=== PATIENT | female | born 1965 | race Caucasian/White ===

== ENCOUNTER 2021-08-30 03:03 | Emergency (ER) | payer SELFPAY ==
--- NOTE | ~2021-08-30 | CT_ITS ---
EXAMINATION: CT brain wo con DATE: 08/30/2021 04:07 INDICATION: Head injury. TECHNIQUE: Computed tomography (CT) of the head was performed without intravenous contrast. The mA wa s adjusted according to patient size. Iterative reconstruction technique was employed. The dose-lengt h product was 605.33 mGy-cm. COMPARISON: None FINDINGS: There is no intracranial hemorrhage, acute infarction, or abnormal intracranial mass lesion . The ventricles are normal in size. There is mild mucosal thickening in the paranasal sinuses. The o rbits are normal. The mastoid air cells are normal. There is left posterior scalp soft tissue swellin g. IMPRESSION: 1. Normal brain. Reviewed, dictated and finalized at location B. GE TECHNICIAN IMPRESSION: 1. Normal brain.
--- NOTE | ~2021-08-30 | CT_ITS ---
EXAMINATION: CT cervical spine wo con DATE: 08/30/2021 04:08 INDICATION: Head injury. TECHNIQUE: Computed tomography (CT) of the cervical spine was performed without intravenous contrast. Automated exposure control and iterative reconstruction technique were employed. The dose-length pro duct was 397.32 mGy-cm. COMPARISON: None FINDINGS: There is 2 mm anterolisthesis of C3 on C4 and 2 mm retrolisthesis of C4 on C5 and C5 on C6. There is 4 degrees dextrocurvature of cervical spine. Vertebral body heights are normal. There is mi ldly decreased disc height at C2-C3 and severely decreased disc height from C4-C5 through C6-C7 with endplate remodeling. The following disc levels are specifically discussed: C2-C3: There is mild bilateral uncovertebral joint osteoarthritis. There is moderate right and severe left facet joint osteoarthritis. There is mild left neural foraminal stenosis. There is no central c anal stenosis. C3-C4: There is mild right and moderate left uncovertebral joint osteoarthritis. There is severe bila teral facet joint osteoarthritis. There is mild bilateral neural foraminal stenosis. There is mild ce ntral canal stenosis. C4-C5: There is severe bilateral uncovertebral joint osteoarthritis. There is moderate bilateral face t joint osteoarthritis. There is moderate bilateral neural foraminal stenosis. There is mild central canal stenosis. C5-C6: There is severe bilateral uncovertebral joint osteoarthritis. There is moderate right and mild left facet joint osteoarthritis. There is moderate right and mild left neural foraminal stenosis. Th ere is mild central canal stenosis. C6-C7: There is severe bilateral uncovertebral joint osteoarthritis. There is mild bilateral facet shey int osteoarthritis. There is mild bilateral neural foraminal stenosis. There is mild central canal st enosis. C7-T1: There is no uncovertebral joint osteoarthritis. There is mild bilateral facet joint osteoarthr itis. There is no neural foraminal stenosis. There is no central canal stenosis. IMPRESSION: 1. No fracture. 2. Severe cervical spondylosis. Reviewed, dictated and finalized at location B. CUTTER
[2021-08-30 03:05] VITALS: BP 139/81; PULSE 60; RESP 18; TEMP 36.2; O2SAT 97
[2021-08-30 04:21] VITALS: BP 104/66; PULSE 59; RESP 16; O2SAT 100
--- NOTE | 2021-08-30 04:40 | PC.NURSE ---
PT CONTINUALLY GETTING OUT OF BED AND REMOVING C-COLLAR. PT EXPLAINED RISKS AND REASONINGS TO WHY C-COLLAR IS PLACED AND TO REMAIN IN BED.
[2021-08-30 07:03] VITALS: BP 103/65; PULSE 87; RESP 16; O2SAT 97
--- NOTE | 2021-08-30 07:13 | ED.WOUNDLAC ---
HPI - Wound/Laceration General Chief Complaint: Wound/Laceration Stated Complaint: ETOH, HI Time Seen by Provider: 08/30/21 03:33 History of Present Illness HPI narrative: Patient is a 56-year-old female who presents to the ER with head injury. Patient got up from her bed in her hotel room when she tripped over her dog and struck her head on a table. Unsure if she lost consciousness. No nausea or vomiting. She does endorse neck pain. She has bleeding from her posterior scalp. Patient reports she drinks several 16 ounce bug bites last night. Related Data Allergies Allergy/AdvReac Type Severity Reaction Status Date / Time Sulfa (Sulfonamide Allergy Blister Verified 08/30/21 03:13 Antibiotics) Review of Systems Review of Systems: All systems reviewed & are unremarkable except as noted in HPI and below Constitutional: Constitutional: Denies chills, Denies fever(s) and Denies weakness ENT: Denies nasal congestion and Denies sore throat Musculoskeletal: Musculoskeletal: Denies back pain, Denies arthralgias and Denies joint swelling Comments: Neck pain Integumentary/Breasts: Comments: Scalp laceration Neurologic: Denies syncope, Denies headache(s), Denies focal weakness and Denies numbness PMFSH Past Medical History Medical History (Updated 08/30/21 @ 07:22 by Riki Tejeda MD) Hypertension Surgical History Surgical History (Updated 08/30/21 @ 07:17 by Riki Tejeda MD) No pertinent past surgical history Social History Social History (Updated 08/30/21 @ 07:17 by Riki Tejeda MD) Alcohol intake: current Exam Narrative: GENERAL: Intoxicated-appearing, well-nourished, and in no acute distress. HEAD: Normocephalic, 2 cm superficial scalp laceration left parietal occipital region. EYES: PERRL and EOMI. ENT: Mucous membranes moist. NECK: Supple. C-spine immobilized. CHEST: Clear to auscultation. No respiratory distress. HEART: Regular rate and rhythm. Normal peripheral pulses. ABDOMEN: Soft, nontender, nondistended. EXTREMITIES: Normal range of motion. No edema. NEURO: Alert and oriented x3. Course Course Emergency Course: Patient informed of results. Tolerated laceration repair. Patient is being observed until she is clinically sober and will be allowed to leave. Vital Signs Vital signs: Vital Signs Temperature 97.1 F L 08/30/21 03:05 Pulse Rate 60 08/30/21 03:05 Respiratory Rate 18 08/30/21 03:05 Blood Pressure 139/81 08/30/21 03:05 Pulse Oximetry 97 08/30/21 03:05 Temperature 97.1 F L 08/30/21 03:05 Pulse Rate 87 08/30/21 07:03 Respiratory Rate 16 08/30/21 07:03 Blood Pressure 103/65 08/30/21 07:03 Pulse Oximetry 97 08/30/21 07:03 Procedures Laceration Laceration 1: Date: 08/30/21 Time: 06:40 Site: scalp Size (cm): 2 Description: linear Depth: simple, single layer Local Anesthetic: none Pre-repair: irrigated ====== Skin Level ====== Skin layer closed with: uzair Number of sutures: 3 ====== Subcutaneous Layer ====== ====== Muscle Layer ====== ====== Tendon Layer ====== Critical Care Time Critical Care Time Critical Care Time: Yes Total Critical Care Time: 35 Discharge Plan Discharge Clinical Impression: Laceration of scalp Patient Disposition: Home, Self-Care Condition: Stable Instructions: Staple Care (ED) Additional Instructions: You will need to remove your uzair in 5 to 7 days. You have been provided a staple remover. Return to the ER if you have fever over 100.4 ?F, you cannot keep down food or water, you lose consciousness, you have additional concerns. Follow-up/Referrals: Markie Gallegos MD [Physician] - 1 Week PHYSICIAN,LOAN SERVICING REPRESENTATIVE [Primary Care Provider] -
--- NOTE | 2021-08-30 07:25 | PC.NURSE ---
ordered breakfast tray for pt.
== END 2021-08-30 07:42 | disposition home or self-care (01) ==
PROVIDERS: Emergency Provider Emergency Medicine
DX: S01.01XA Laceration without foreign body of scalp, initial encounter (principal); I10 Essential (primary) hypertension; W01.190A Fall on same level from slipping, tripping and stumbling with subsequent striking against furniture, initial encounter; Y92.59 Other trade areas as the place of occurrence of the external cause
CPT/HCPCS: 12001; 70450; 72125; 99284